=== PATIENT | female | born 1985 | race Caucasian/White ===

== ENCOUNTER 2018-02-28 09:30 | Inpatient (IN) | payer OTHER ==
[~2018-02-28] VITALS: Ht 160 cm; Wt 78.9 kg
[2018-03-20] MEDS ORDERED: SYNTHROID88 MCG PO (08:43)
== END 2018-03-21 11:32 | disposition home or self-care (01) | DRG 775 ==
LOC: OB/GYN 03-15 09:30 → LDR 03-19 00:15 → OB/GYN 03-19 00:47 → LDR 03-19 01:50 → OB/GYN 03-19 10:52
PROC: 10E0XZZ Delivery of Products of Conception, External Approach (ICD-10-PCS; principal; 2018-03-19)
PROC: 0KQM0ZZ Repair Perineum Muscle, Open Approach (ICD-10-PCS; 2018-03-19)
PROC: 4A1HXCZ Monitoring of Products of Conception, Cardiac Rate, External Approach (ICD-10-PCS; 2018-03-19)
DX: O70.1 Second degree perineal laceration during delivery (principal); Z37.0 Single live birth; O99.284 Endocrine, nutritional and metabolic diseases complicating childbirth; E03.8 Other specified hypothyroidism; Z3A.40 40 weeks gestation of pregnancy

== ENCOUNTER 2018-03-14 09:41 | Outpatient (CLI) | payer OTHER | END 2018-03-14 10:37 | disposition home or self-care (01) | LOC: NST 09:41 | DX: Z34.83 Encounter for supervision of other normal pregnancy, third trimester (principal) ==

== ENCOUNTER 2018-03-17 09:10 | Outpatient (CLI) | payer OTHER | END 2018-03-17 10:23 | disposition home or self-care (01) | LOC: NST 09:10 | DX: Z34.83 Encounter for supervision of other normal pregnancy, third trimester (principal) ==

== ENCOUNTER 2021-05-08 08:16 | Outpatient (CLI) | payer OTHER ==
[~2021-05-08 08:16] MED LIST: SYNTHROID88 MCG PO
== END 2021-05-08 08:23 | disposition home or self-care (01) ==
LOC: SONOGRAMA 08:16
PROVIDERS: ATTEND Pathology Anatomic Pathology & Clinical Pathology
DX: E03.8 Other specified hypothyroidism (principal)